=== PATIENT | female | born 1930 | race Caucasian/White ===

== ENCOUNTER 2017-08-25 10:22 | Emergency (ER) | payer MEDICARE, OTHER ==
[~2017-08-25] VITALS: Ht 167.6 cm; Wt 74.8 kg
[2017-08-25] MEDS ORDERED: FAMOTIDINE 20 MG/2 ML VIAL IVP ONE (10:45)
[2017-08-25] MEDS ORDERED: IV NORMAL SALINE 1,000ML 1,000 ML IV SCH (10:45)
[2017-08-25] MEDS ORDERED: KETOROLAC 30 MG/ML VIAL. IV ONE (10:45)
[2017-08-25] MEDS ORDERED: ONDANSETRON PF 4 MG/2 ML VIAL. IV ONE (10:45)
[2017-08-25 11:02] LABS: BASO % 1 % (0-3); EOS % 0 % (0-3); HEMATOCRIT 44.4 % (36.0-47.0); HEMOGLOBIN 14.9 g/dL (12.0-15.5); LYMPH # 1.2 x10^3/uL (1.0-4.8); LYMPH % 18 % (24-48); MEAN CORPUSCULAR HEMOGLOBIN 32 pg (25-35); MEAN CORPUSCULAR HGB CONC 34 g/dL (31-37); MEAN CORPUSCULAR VOLUME 94 fL (79-100); MONO # 0.9 x10^3/uL (0.0-1.1); MONO % 13 % (0-9); NEUT # 4.4 x10^3uL (1.8-7.7); NEUT % 67 % (31-73); PLATELET COUNT 158 x10^3/uL (140-400); RED BLOOD COUNT 4.72 x10^6/uL (3.50-5.40); RED CELL DISTRIBUTION WIDTH 13.2 % (11.5-14.5); WHITE BLOOD COUNT 6.5 x10^3/uL (4.0-11.0)
[2017-08-25] MEDS ORDERED: PROMETH/CODEINE 6.25/10MG 5 ML SYRUP. PO ONE (11:15)
[2017-08-25 11:25] LABS: ALBUMIN 3.5 g/dL (3.4-5.0); ALBUMIN/GLOBULIN RATIO 1.3 (1.0-1.7); CALCIUM 8.8 mg/dL (8.5-10.1); GFR 52.7; POTASSIUM 4.1 mmol/L (3.5-5.1); TOTAL BILIRUBIN 0.6 mg/dL (0.2-1.0); TOTAL PROTEIN 6.2 g/dL (6.4-8.2)
[2017-08-25 11:29] LABS: BACTERIA,URINE 0 /HPF (0-FEW); BILIRUBIN,URINE NEG (NEG); CLARITY,URINE CLEAR; COLOR,URINE YELLOW; GLUCOSE,URINE NEG (NEG); NITRITE,URINE NEG (NEG); SQUAMOUS EPITHELIAL CELL,UR FEW /LPF; UROBILINOGEN,URINE 0.2 mg/dL (0.2 mg/dL); WBC,URINE OCC /HPF (0-4)
[2017-08-25 11:30] LABS: HYALINE CASTS, URINE OCC /HPF
--- NOTE | 2017-08-25 11:40 | RAD ---
EXAM: Head CT without contrast. HISTORY: Headache. TECHNIQUE: Computed tomographic images of the head were obtained without contrast. COMPARISON: None. FINDINGS: There is no acute or subacute extra-axial or intraparenchymal hemorrhage. There is no mass effect or midline shift. There is no hydrocephalus. There are areas of decreased attenuation within the cerebral white matter, nonspecific and likely related to chronic small vessel disease. There is cerebral and cerebellar atrophy. There is calcification of the basal ganglia. There are foci of encephalomalacia within the cerebellar hemispheres likely due to chronic infarction. There is calcified plaque within the distal vertebral and internal carotid arteries. There is a left max sinus mucous retention cyst. The orbits are unremarkable. No calvarial lesion is seen. IMPRESSION: 1. No acute intracranial finding. Note is made that MRI is more sensitive for acute infarction. 2. Scattered areas of hypodensity within the cerebral white, likely due to chronic small vessel disease. 3. Cerebral and loss. 4. Chronic infarcts within the cerebellar hemispheres. PQRS Compliance Statement: One or more of the following individualized dose reduction techniques were utilized for this examination: 1. Automated exposure control 2. Adjustment of the mA and/or kV according to patient size 3. Use of iterative reconstruction technique
--- NOTE | 2017-08-25 12:07 | PHYS DOC ---
General Chief Complaint: HEADACHE Stated Complaint: HEADACHE, N/V Time Seen by MD: 10:34 Source: patient, family Exam Limitations: no limitations Problems: History of Present Illness Initial Comments Patient is an 86-year-old female brought to the ED by family with nausea vomiting diarrhea and headache. Patient states she's been dealing with intermittent migraine headaches for the past 6-7 months. She has seen her doctor and has been diagnosed with early stages of Alzheimer's. Patient states that this morning about 6 AM she began vomiting and having loose stools she states she's had numerous episodes of vomiting and diarrhea and feels like she is empty. She has a severe global headache worse when she is upright, she denies any focal abdominal pain complaints she's had some body aches but no measured fevers no neck stiffness no rash. No travel or bad food exposure she states she has come to the emergency tonight to get rid of her nausea. On arrival her vital signs are stable Timing/Duration: 24 hours Severity: severe Modifying Factors: worse with eating, worse with movement, improves with rest Associated Symptoms: headaches, nausea/vomiting Allergies: Coded Allergies: No Known Drug Allergies (Unverified , 08/25/17) Past Medical History Medical History: other (hyperlipidemia, GERD, migraine headaches, dementia, osteoporosis, hypertension) Surgical History: noncontributory Social History Smoker: non-smoker Alcohol: none Drugs: none Review of Systems Constitutional: denies chills, denies diaphoresis, denies fever, denies malaise Respiratory: denies cough, denies shortness of breath Cardiovascular: denies chest pain, denies palpitations Gastrointestinal: see HPI Genitourinary: denies dysuria, denies frequency, denies hematuria Musculoskeletal: denies back pain, denies joint swelling, denies neck pain Psychiatric/Neurological: see HPI, headache, denies numbness, denies paresthesia, denies seizure, denies weakness Physical Exam General Appearance: moderate distress (nausea) Eyes: bilateral eye normal inspection, bilateral eye PERRL, bilateral eye EOMI Ear, Nose, Throat: hearing grossly normal, normal ENT inspection, normal pharynx (dry membranes) Neck: non-tender, full range of motion, supple Respiratory: normal breath sounds, no respiratory distress Cardiovascular: normal peripheral pulses, regular rate, rhythm Gastrointestinal: non tender, soft, no organomegaly, other (negative Cano negative McBurney no palpable mass) Rectal: deferred Back: no CVA tenderness, no vertebral tenderness Extremities: normal range of motion, non-tender, normal inspection Neurologic/Psychiatric: mink rancher II-XII nml as tested, no motor/sensory deficits, alert, normal mood/affect, oriented x 3 Skin: pallor (poor turgor) Orders, Labs, Meds PATIENT: MARISSA LO ACCOUNT: [id number] : 1930 LOCATION: ER AGE: 86 SEX: F EXAM STATUS: REG ER ORD. PHYSICIAN: DONALDO PATINO DO REASON: BETTS worsening x months, n/v PROCEDURE: CT HEAD WO CONTRAST EXAM: Head CT without contrast. HISTORY: Headache. TECHNIQUE: Computed tomographic images of the head were obtained without contrast. COMPARISON: None. FINDINGS: There is no acute or subacute extra-axial or intraparenchymal hemorrhage. There is no mass effect or midline shift. There is no hydrocephalus. There are areas of decreased attenuation within the cerebral white matter, nonspecific and likely related to chronic small vessel disease. There is cerebral and cerebellar atrophy. There is calcification of the basal ganglia. There are foci of encephalomalacia within the cerebellar hemispheres likely due to chronic infarction. There is calcified plaque within the distal vertebral and internal carotid arteries. There is a left max sinus mucous retention cyst. The orbits are unremarkable. No calvarial lesion is seen. IMPRESSION: 1. No acute intracranial finding. Note is made that MRI is more sensitive for acute infarction. 2. Scattered areas of hypodensity within the cerebral white, likely due to chronic small vessel disease. 3. Cerebral and loss. 4. Chronic infarcts within the cerebellar hemispheres. PQRS Compliance Statement: One or more of the following individualized dose reduction techniques were utilized for this examination: 1. Automated exposure control 2. Adjustment of the mA and/or kV according to patient size 3. Use of iterative reconstruction technique DICTATED AND SIGNED BY: BETH CLARKE MD DATE: 08/25/17 1135 CC: ELINA BREEN; DONALDO PATINO DO ~ PATIENT: MARISSA LO ACCOUNT: [id number] : 1930 LOCATION: ER AGE: 86 SEX: F EXAM STATUS: REG ER ORD. PHYSICIAN: DONALDO PATINO DO REASON: n/v/d PROCEDURE: ACUTE ABDOMEN SERIES EXAM: Abdomen acute complete. HISTORY: Nausea, vomiting and pain. COMPARISON: None. FINDINGS: A frontal view of the chest and frontal upright and supine views of the abdomen are obtained. There is no infiltrate, effusion or pneumothorax. The heart is normal in size. There are few calcified granulomas. There are metallic clips overlying the gastroesophageal junction. There is a generator overlying the right iliac bone with leads overlying the right sacrum. There are postoperative changes involving S1. There is a nonobstructive bowel gas pattern. There is no free air. IMPRESSION: 1. No acute pulmonary finding. 2. Nonobstructive bowel gas pattern. DICTATED AND SIGNED BY: BETH CLARKE MD DATE: 08/25/17 1137 CC: ELINA BREEN; DONALDO PATINO DO ~ Lab evaluation unremarkable. Patient received 1 L normal saline IV bolus, Zofran and Pepcid and Toradol IV with control of her symptoms. She is able to drink liquids and keep them down, she is now requesting discharge home. I discussed signs and symptoms to monitor as well as indications for urgent return to the department. I discussed prescription medications and oral hydration and the patient and family's questions were answered to their satisfaction. They expressed agreement and understanding of the treatment plan. Departure Time of Disposition: 13:19 Disposition: 01 HOME, SELF-CARE Diagnosis: Enteritis likely viral, Dehydration, Headache Condition: IMPROVED Patient Instructions: Dehydration, Elderly, Pkle-am-Eswi, Viral Gastroenteritis , [id number] Additional Instructions: Aggressive clear liquids today, advance to bland diet tomorrow as tolerated. [id number] probiotics or cultured yogurt (gogurt, danimals) to replace normal gut brandi. [id number] Tylenol and ibuprofen as needed. Prescription: Zofran ODT, dicyclomine Follow-up with Dr. Breen in 3-5 days for recheck. Return to the ED with new or changing symptoms. DONALDO PATINO DO Aug 25, 2017 12:07
--- NOTE | 2017-08-25 12:37 | RAD ---
EXAM: Abdomen acute complete. HISTORY: Nausea, vomiting and pain. COMPARISON: None. FINDINGS: A frontal view of the chest and frontal upright and supine views of the abdomen are obtained. There is no infiltrate, effusion or pneumothorax. The heart is normal in size. There are few calcified granulomas. There are metallic clips overlying the gastroesophageal junction. There is a generator overlying the right iliac bone with leads overlying the right sacrum. There are postoperative changes involving S1. There is a nonobstructive bowel gas pattern. There is no free air. IMPRESSION: 1. No acute pulmonary finding. 2. Nonobstructive bowel gas pattern.
[2017-08-25] MEDS ORDERED: DICY20TA3 PO (13:23)
[2017-08-25] MEDS ORDERED: ONDA4TAB10 PO (13:23)
[2017-08-25 13:28] VITALS: BP 138/64
[2017-08-25] MEDS ORDERED: ONDANSETRON ODT 4 MG TAB.RAPDIS PO ONE (13:30)
== END 2017-08-25 13:36 | disposition home or self-care (01) ==
LOC: ER 10:32
DX: K52.9 Noninfective gastroenteritis and colitis, unspecified (principal); E86.0 Dehydration; R51 Headache; E78.5 Hyperlipidemia, unspecified; K21.9 Gastro-esophageal reflux disease without esophagitis; G43.909 Migraine, unspecified, not intractable, without status migrainosus; I10 Essential (primary) hypertension; G30.9 Alzheimer's disease, unspecified; F02.80 Dementia in other diseases classified elsewhere, unspecified severity, without behavioral disturbance, psychotic disturbance, mood disturbance, and anxiety
CPT/HCPCS: 36415; 70450; 74022; 80053; 81001; 83690; 85025; 96361; 96374; 96375; 99285; J1885; J2405; Q0162; S0028; J7030

== ENCOUNTER 2017-10-02 08:59 | Emergency (ER) | payer MEDICARE, OTHER ==
[~2017-10-02 08:59] MED LIST: DICY20TA3 PO; ONDA4TAB10 PO
[2017-10-02 09:52] LABS: BASO % 1 % (0-3); EOS % 1 % (0-3); HEMATOCRIT 43.2 % (36.0-47.0); HEMOGLOBIN 14.2 g/dL (12.0-15.5); LYMPH # 1.1 x10^3/uL (1.0-4.8); LYMPH % 20 % (24-48); MEAN CORPUSCULAR HEMOGLOBIN 31 pg (25-35); MEAN CORPUSCULAR HGB CONC 33 g/dL (31-37); MEAN CORPUSCULAR VOLUME 95 fL (79-100); MONO # 0.8 x10^3/uL (0.0-1.1); MONO % 14 % (0-9); NEUT # 3.6 x10^3uL (1.8-7.7); NEUT % 65 % (31-73); PLATELET COUNT 164 x10^3/uL (140-400); RED BLOOD COUNT 4.55 x10^6/uL (3.50-5.40); RED CELL DISTRIBUTION WIDTH 12.9 % (11.5-14.5); WHITE BLOOD COUNT 5.6 x10^3/uL (4.0-11.0)
[2017-10-02] MEDS ORDERED: IV NORMAL SALINE 1,000ML 1,000 ML IV SCH (10:00)
[2017-10-02] MEDS ORDERED: ONDANSETRON PF 4 MG/2 ML VIAL. IV ONE (10:15)
--- NOTE | 2017-10-02 10:21 | PHYS DOC ---
Past History Past Medical History: GERD Past Surgical History: Appendectomy Alcohol Use: None Drug Use: None Adult General Chief Complaint Chief Complaint: DIARRHEA HPI HPI 86-year-old female patient complaining of frequent episodes of watery diarrhea since 1999 last night and states she had 1 episode of diarrhea every an hour the last episode after and 7 AM today. Patient complaining of nausea and feeling hot and generalized without vomiting, chest pain, shortness of breath, sick contacts, urinary symptom. Patient was admitted at Hospital one month ago for syncope evaluation and denies taking antibiotic recently. Patient also complaining of right leg pain and erythema for one week and some by her primary care physician 3 days ago without any special treatment. Review of Systems Review of Systems Constitutional: Reports subjective fever and chills [] Eyes: Denies change in visual acuity, redness, or eye pain [] HENT: Denies nasal congestion or sore throat [] Respiratory: Denies cough or shortness of breath [] Cardiovascular: No additional information not addressed in HPI [] GI: Denies abdominal pain, vomiting, bloody stools, reports nausea and diarrhea [] : Denies dysuria or hematuria [] Musculoskeletal: Denies back pain or joint pain [] Integument: Denies rash or skin lesions [] Neurologic: Denies headache, focal weakness or sensory changes [] Endocrine: Denies polyuria or polydipsia [] All other systems were reviewed and found to be within normal limits, except as documented in this note. Current Medications Current Medications Current Medications Medications (Trade) Dose Ordered Sig/Gilberto Start Time Stop Time Status Last Admin Dose Admin Ondansetron HCl (Zofran) 4 mg 1X ONCE 10/02/17 10:15 10/02/17 10:16 10/02/17 10:03 4 MG Sodium Chloride 1,000 ml @ 100 mls/hr Q10H 10/02/17 10:00 10/02/17 19:59 10/02/17 10:03 100 MLS/HR Allergies Allergies Allergies Coded Allergies Type Severity Reaction Last Updated Verified No Known Drug Allergies 08/25/17 No Physical Exam Physical Exam Constitutional: Mild distress, non-toxic appearance, afebrile. [] HENT: Normocephalic, atraumatic, bilateral external ears normal, oropharynx dry , no oral exudates, nose normal. [] Eyes: PERRLA, EOMI, conjunctiva normal, no discharge. [] Neck: Normal range of motion, no tenderness, supple, no stridor. [] Cardiovascular:Heart rate regular rhythm, no murmur [] Lungs & Thorax: Bilateral breath sounds clear to auscultation [] Abdomen: Bowel sounds normal, soft, no tenderness, no masses, no pulsatile masses. [] Skin: Warm, dry, no erythema, no rash. [] Back: No tenderness, no CVA tenderness. [] Extremities: No tenderness, no cyanosis, no clubbing, ROM intact, no edema. [] Neurologic: Alert and oriented X 3, normal motor function, normal sensory function, no focal deficits noted. [] Psychologic: Affect normal, judgement normal, mood normal. [] Current Patient Data Vital Signs Vital Signs Date Time Temp Pulse Resp B/P (MAP) Pulse Ox O2 Delivery O2 Flow Rate FiO2 10/02/17 08:59 98.0 67 22 99 Room Air Lab Results Laboratory Tests Test 10/02/17 09:34 White Blood Count 5.6 x10^3/uL (4.0-11.0) Red Blood Count 4.55 x10^6/uL (3.50-5.40) Hemoglobin 14.2 g/dL (12.0-15.5) Hematocrit 43.2 % (36.0-47.0) Mean Corpuscular Volume 95 fL (79-100) Mean Corpuscular Hemoglobin 31 pg (25-35) Mean Corpuscular Hemoglobin Concent 33 g/dL (31-37) Red Cell Distribution Width 12.9 % (11.5-14.5) Platelet Count 164 x10^3/uL (140-400) Neutrophils (%) (Auto) 65 % (31-73) Lymphocytes (%) (Auto) 20 % (24-48) L Monocytes (%) (Auto) 14 % (0-9) H Eosinophils (%) (Auto) 1 % (0-3) Basophils (%) (Auto) 1 % (0-3) Neutrophils # (Auto) 3.6 x10^3uL (1.8-7.7) Lymphocytes # (Auto) 1.1 x10^3/uL (1.0-4.8) Monocytes # (Auto) 0.8 x10^3/uL (0.0-1.1) Eosinophils # (Auto) 0.0 x10^3/uL (0.0-0.7) Basophils # (Auto) 0.0 x10^3/uL (0.0-0.2) EKG EKG [] Radiology/Procedures Radiology/Procedures [] Course & Med Decision Making Course & Med Decision Making Pertinent Labs and Imaging studies reviewed. (See chart for details) [] Dragon Disclaimer Dragon Disclaimer This electronic medical record was generated, in whole or in part, using a voice recognition dictation system. Departure Departure: Impression: Primary Impression: Viral enteritis Additional Impression: Cellulitis of right leg Disposition: HOME, SELF-CARE (at 1308) Condition: IMPROVED Referrals: ELINA OVIEDO (PCP) Patient Instructions: Cellulitis, Diarrhea, Diet for Diarrhea, Adult Additional Instructions: Apply moist heat pad on your Right Leg Follow-up with your primary care physician in 48 hours for evaluation of cellulitis of leg Scripts Ondansetron (ZOFRAN ODT) 4 Mg Tab.rapdis 4 MG PO TID for NAUSEA, #10 Prov: LIZZETTE ANDREWS MD 10/02/17 Problem Qualifiers LIZZETTE ANDREWS MD Oct 02, 2017 10:21
[2017-10-02 10:24] LABS: ALBUMIN 3.6 g/dL (3.4-5.0); ALBUMIN/GLOBULIN RATIO 1.5 (1.0-1.7); CALCIUM 8.8 mg/dL (8.5-10.1); CREATININE 1.2 mg/dL (0.6-1.0); GFR 42.7; TOTAL BILIRUBIN 0.9 mg/dL (0.2-1.0)
[2017-10-02 11:58] LABS: BACTERIA,URINE FEW /HPF (0-FEW); BILIRUBIN,URINE NEG (NEG); CLARITY,URINE HAZY; COLOR,URINE AMBER; GLUCOSE,URINE NEG (NEG); HYALINE CASTS, URINE FEW /HPF; NITRITE,URINE NEG (NEG); SQUAMOUS EPITHELIAL CELL,UR OCC /LPF; UROBILINOGEN,URINE 0.2 mg/dL (0.2 mg/dL)
--- NOTE | 2017-10-02 12:34 | RAD ---
Right lower extremity venous duplex study 10/02/2017 Clinical History: Right leg redness and pain. Technique: Using a combination of real time ultrasound imaging and color-flow and pulse Doppler imaging techniques along with graded compression and augmentation, duplex evaluation of the deep venous system of the right lower extremity was performed. Multiple images were obtained. Findings: There is no sonographic evidence of deep venous thrombosis involving the visualized deep venous structures of right lower extremity. Impression: Negative study.
[2017-10-02] MEDS ORDERED: ONDA4TAB10 PO (13:11)
[2017-10-02 13:25] VITALS: BP 127/66
== END 2017-10-02 13:27 | disposition home or self-care (01) ==
LOC: ER 08:59
DX: A08.4 Viral intestinal infection, unspecified (principal); L03.115 Cellulitis of right lower limb; K21.9 Gastro-esophageal reflux disease without esophagitis
CPT/HCPCS: 36415; 80053; 81001; 83605; 83690; 83880; 84484; 85025; 85610; 87040; 87086; 93971; 96361; 96374; 99285; J2405; J7030

== ENCOUNTER 2018-03-24 23:31 | Inpatient (IN) | payer MEDICARE, OTHER ==
[~2018-03-24] VITALS: Ht 170.2 cm; Wt 56.5 kg
--- NOTE | 2018-03-24 23:37 | ED.ADGEN ---
Past History Past Medical History: Constipation, GERD, Other Past Surgical History: Appendectomy Alcohol Use: None Drug Use: None Adult General Chief Complaint Chief Complaint "... She not hardly eaten anything for a month... ".. She dizzy...". " Almost passes out.. if she stand up..." Son , " I just don't feel like eating... ".." I am nauseated all .. the time.. " .." I hurt in my abd...." HPI HPI Patient is a 87 year old male who presents with above hx and complaints of dizzy , near syncope, nausea and poor intake. Pt. normally in an Assisted living in [place], [place]. Pt. currently staying with family here in [place] because having surgery .Pt. very poor intake the past 30 days as per family. Pt. complaints of generalized abd. discomfort. No history of trauma. No history of specific ill contacts. No recent travel. Patient states she has had minimal of any passage of stool. Patient denies any recent abdomen surgeries. Has has history of appendectomy and placement of bladder stimulator for urinary incontinence. Pt. has had hx. of problems of constipation and pain on defecation. Review of Systems Review of Systems Constitutional: Denies fever or chills [] Eyes: Denies change in visual acuity, redness, or eye pain [] HENT: Denies nasal congestion or sore throat [] Respiratory: Denies cough or shortness of breath [] Cardiovascular: No additional information not addressed in HPI [] GI: Complaints of generalized abdominal pain, nausea,. Denies vomiting, bloody stools or diarrhea []Hx. of constipation : Denies dysuria or hematuria [] Musculoskeletal: Denies back pain or joint pain [] Integument: Denies rash or skin lesions [] Neurologic: Denies headache, focal weakness or sensory changes [- Hx. ]near syncope episodes Endocrine: Denies polyuria or polydipsia [] All other systems were reviewed and found to be within normal limits, except as documented in this note. Family History Family History Non-contributory Current Medications Current Medications Current Medications Medications (Trade) Dose Ordered Sig/Gilberto Start Time Stop Time Status Last Admin Dose Admin Lactated Ringer's 1,000 ml @ 100 mls/hr Q10H 03/25/18 00:00 03/25/18 09:59 03/25/18 00:00 100 MLS/HR See Nursing for home meds. Allergies Allergies NKDA Physical Exam Physical Exam Constitutional: Moderately acute distress, chronically ill in appearance. [] Muscle wasting cachectic in appearance HENT: Normocephalic, atraumatic, bilateral external ears normal, oropharynx dry, , no oral exudates, nose normal. [] Eyes: PERRLA, EOMI, conjunctiva normal, no discharge. [] Neck: Normal range of motion, no tenderness, supple, no stridor. [] Cardiovascular:Heart rate regular rhythm, no murmur [] Lungs & Thorax: Bilateral breath sounds equal at apex on. Auscultation [] Abdomen: Bowel sounds decreased, soft, generalized tenderness, no masses, no pulsatile masses. [] Old surgery scars.. Mild distention. Skin: Warm, dry, no erythema, no rash. [] Poor turgor Back: No tenderness, no CVA tenderness. [] Extremities: No tenderness, no cyanosis, no clubbing, ROM intact, no edema. [] Generalized weakness. Arthritic changes. Muscle wasting. Neurologic: Alert and oriented X 3, patient moves all extremities on request. Decreased plantar sensation. No gross focal deficits noted. [] Psychologic: Affect anxious, judgement normal, mood depressed Current Patient Data Vital Signs Vital Signs Date Time Temp Pulse Resp B/P (MAP) Pulse Ox O2 Delivery O2 Flow Rate FiO2 03/24/18 23:31 97.8 76 20 99 Room Air Lab Results Laboratory Tests Test 03/24/18 23:57 03/25/18 00:05 White Blood Count 7.0 x10^3/uL (4.0-11.0) Red Blood Count 4.22 x10^6/uL (3.50-5.40) Hemoglobin 13.4 g/dL (12.0-15.5) Hematocrit 40.5 % (36.0-47.0) Mean Corpuscular Volume 96 fL (79-100) Mean Corpuscular Hemoglobin 32 pg (25-35) Mean Corpuscular Hemoglobin Concent 33 g/dL (31-37) Red Cell Distribution Width 13.4 % (11.5-14.5) Platelet Count 167 x10^3/uL (140-400) Neutrophils (%) (Auto) 70 % (31-73) Lymphocytes (%) (Auto) 21 % (24-48) L Monocytes (%) (Auto) 8 % (0-9) Eosinophils (%) (Auto) 1 % (0-3) Basophils (%) (Auto) 1 % (0-3) Neutrophils # (Auto) 4.9 x10^3uL (1.8-7.7) Lymphocytes # (Auto) 1.5 x10^3/uL (1.0-4.8) Monocytes # (Auto) 0.5 x10^3/uL (0.0-1.1) Eosinophils # (Auto) 0.1 x10^3/uL (0.0-0.7) Basophils # (Auto) 0.0 x10^3/uL (0.0-0.2) Prothrombin Time 10.9 SEC (9.4-11.4) Prothrombin Time INR 1.1 (0.9-1.1) PTT 21 SEC (23-33) L Sodium Level 144 mmol/L (136-145) Potassium Level 3.6 mmol/L (3.5-5.1) Chloride Level 109 mmol/L (98-107) H Carbon Dioxide Level 25 mmol/L (21-32) Anion Gap 10 (6-14) Blood Urea Nitrogen 14 mg/dL (7-20) Creatinine 1.2 mg/dL (0.6-1.0) H Estimated GFR (Cockcroft-Gault) 42.6 BUN/Creatinine Ratio 12 (6-20) Glucose Level 145 mg/dL (70-99) H Calcium Level 8.9 mg/dL (8.5-10.1) Total Bilirubin 0.8 mg/dL (0.2-1.0) Direct Bilirubin 0.2 mg/dL (0.0-0.2) Aspartate Amino Transferase (AST) 29 U/L (15-37) Alanine Aminotransferase (ALT) 28 U/L (14-59) Alkaline Phosphatase 48 U/L (46-116) Creatine Kinase 79 U/L (26-192) Creatine Kinase MB (Mass) 1.2 ng/mL (0.0-3.6) Creatine Kinase MB Relative Index 1.5 % (0-4) Troponin I Quantitative < 0.017 ng/mL (0-0.055) Total Protein 6.1 g/dL (6.4-8.2) L Albumin 3.4 g/dL (3.4-5.0) Albumin/Globulin Ratio 1.3 (1.0-1.7) Lipase 150 U/L (73-393) Urine Collection Type Unknown Urine Color Yellow Urine Clarity Clear Urine pH 6.0 Urine Specific Floris 1.015 Urine Protein >100 mg/dl (NEG-TRACE) Urine Glucose (UA) Neg mg/dL (NEG) Urine Ketones (Stick) Neg mg/dL (NEG) Urine Blood Trace (NEG) Urine Nitrite Neg (NEG) Urine Bilirubin Neg (NEG) Urine Urobilinogen Dipstick 0.2 mg/dL (0.2 mg/dL) Urine Leukocyte Esterase Neg (NEG) Urine RBC 0 /HPF (0-2) Urine WBC Occ /HPF (0-4) Urine Squamous Epithelial Cells Occ /LPF Urine Bacteria 0 /HPF (0-FEW) Urine Opiates Screen Neg (NEG) Urine Methadone Screen Neg (NEG) Urine Barbiturates Neg (NEG) Urine Phencyclidine Screen Neg (NEG) Urine Amphetamine/Methamphetamine Neg (NEG) Urine Benzodiazepines Screen Neg (NEG) Urine Cocaine Screen Neg (NEG) Urine Cannabinoids Screen Neg (NEG) Urine Ethyl Alcohol Neg (NEG) EKG EKG My interpretation EKG shows a sinus rate at 80 bpm. No acute morphology appreciated[] Radiology/Procedures Radiology/Procedures My interpretation of chest x-ray shows no free air in the diaphragm. There are clips under left diaphragm. Does have findings of a bladder stimulator. Few isolated loops of bowel. My interpretation CT of head shows no shift, mass, edema, bleed, or fracture. Does have generalized atrophy and volume loss. CT of abdomen pending at time of admission. Course & Med Decision Making Course & Med Decision Making Pertinent Labs and Imaging studies reviewed. (See chart for details) Discussed presentation, testing and treatment plan with Dr. Multani. Will admit for further eval. and tx. [] Final Impression Final Impression 1. Nausea 2. Dizzy[] 3. Near Syncope 4. Weakness 5. Elevated Protein Urine 6. Deconditioned 7. Elevated Glucose- DM 8. Elevated Creat. 9. Abd. Pain 10.Thicken rectal and bowel wall ? colitis vs neoplastic 11.Thicken bladder wall ? neoplastic, artifact 12.Constipation Dragon Disclaimer Dragon Disclaimer This electronic medical record was generated, in whole or in part, using a voice recognition dictation system. JIA BROWN MD Mar 24, 2018 23:37
--- NOTE | 2018-03-24 23:54 | EKG ---
[address] [address] Test Date: 2018-03-24 Test Time: 23:44:35 Pat Name: MARISSA LO Department: Room: Gender: F Marketing Secretary: CÉSAR : 1930 Requested By: JIA BROWN Order Number: [id number] Reading MD: Measurements Intervals [place] Rate: 80 P: 90 CT: 134 QRS: 55 QRSD: 86 T: 55 QT: 386 QTc: 449 Interpretive Statements SINUS RHYTHM NORMAL ECG RI6.01 No previous ECG available for comparison
[2018-03-25] MEDS ORDERED: IV RINGERS SOLUTION,LACTATED 1,000 ML IV SCH
[2018-03-25 00:29] LABS: BASO % 1 % (0-3); EOS # 0.1 x10^3/uL (0.0-0.7); EOS % 1 % (0-3); HEMATOCRIT 40.5 % (36.0-47.0); HEMOGLOBIN 13.4 g/dL (12.0-15.5); LYMPH # 1.5 x10^3/uL (1.0-4.8); LYMPH % 21 % (24-48); MEAN CORPUSCULAR HEMOGLOBIN 32 pg (25-35); MEAN CORPUSCULAR HGB CONC 33 g/dL (31-37); MEAN CORPUSCULAR VOLUME 96 fL (79-100); MONO # 0.5 x10^3/uL (0.0-1.1); MONO % 8 % (0-9); NEUT # 4.9 x10^3uL (1.8-7.7); NEUT % 70 % (31-73); PLATELET COUNT 167 x10^3/uL (140-400); RED BLOOD COUNT 4.22 x10^6/uL (3.50-5.40); RED CELL DISTRIBUTION WIDTH 13.4 % (11.5-14.5)
[2018-03-25 00:40] LABS: BILIRUBIN,URINE NEG (NEG); CLARITY,URINE CLEAR; COLOR,URINE YELLOW; GLUCOSE,URINE NEG (NEG); NITRITE,URINE NEG (NEG); RBC,URINE 0 /HPF (0-2); UROBILINOGEN,URINE 0.2 mg/dL (0.2 mg/dL)
[2018-03-25 00:41] LABS: BACTERIA,URINE 0 /HPF (0-FEW); SQUAMOUS EPITHELIAL CELL,UR OCC /LPF; WBC,URINE OCC /HPF (0-4)
--- NOTE | 2018-03-25 00:47 | RAD ---
INDICATION: headache, dizziness COMPARISON: August 2017 TECHNIQUE: Axial CT images obtained through the head without intravenous contrast. One or more of the following individualized dose reduction techniques were utilized for this examination: 1. Automated exposure control; 2. Adjustment of the mA and/or kV according to patient size; 3. Use of iterative reconstruction technique. FINDINGS: No intracranial hemorrhage. No midline shift. Basal cisterns patents. Ventricles and sulci are globally prominent. No acute osseous abnormality. Orbits and paranasal sinuses unremarkable. Scattered foci of low attenuation within the white matter. IMPRESSION: 1. No acute intracranial hemorrhage. 2. Scattered regions of low attenuation within the white matter. Non-specific in nature but frequently secondary to chronic small vessel ischemic disease. 3. Prominence of ventricles and sulci which is frequently secondary to age related volume loss. Electronically signed by: Memo Christianson MD (03/25/2018 12:44 AM) [id number]
[2018-03-25 00:48] LABS: BARBITURATES NEG (NEG); BENZODIAZEPINES NEG (NEG); CANNABINOIDS NEG (NEG); COCAINE NEG (NEG); METHADONE NEG (NEG); OPIATES NEG (NEG); PHENCYCLIDINE NEG (NEG)
[2018-03-25 00:49] LABS: AMPHETAMINE/METHAMPHETAMINE NEG (NEG)
[2018-03-25 01:09] LABS: ALBUMIN 3.4 g/dL (3.4-5.0); ALBUMIN/GLOBULIN RATIO 1.3 (1.0-1.7); CALCIUM 8.9 mg/dL (8.5-10.1); CREATININE 1.2 mg/dL (0.6-1.0); DIRECT BILIRUBIN 0.2 mg/dL (0.0-0.2); GFR 42.6; POTASSIUM 3.6 mmol/L (3.5-5.1); TOTAL BILIRUBIN 0.8 mg/dL (0.2-1.0); TOTAL PROTEIN 6.1 g/dL (6.4-8.2)
[2018-03-25] MEDS ORDERED: IOHEXOL 240 MG/ML 50ML VIAL. ONE (01:37)
[2018-03-25] MEDS ORDERED: IV RINGERS SOLUTION,LACTATED 1,000 ML IV ONE (02:00)
[2018-03-25] MEDS ORDERED: CONTRAST GIVEN MC PRN (02:15)
[2018-03-25] MEDS ORDERED: IOHEXOL 300 MG/ML 75 ML VIAL. IV ONE (02:30)
[2018-03-25] MEDS ORDERED: IOHEXOL 240 MG/ML 50ML VIAL. PO ONE (02:30)
--- NOTE | 2018-03-25 04:07 | RAD ---
INDICATION: nausea, weakness, no appetite, weight loss, fall, confusion
gave Omni 300 60ml iv - reduced dose protocol [id number]
gave [id number] 30 ml oral COMPARISON: None. TECHNIQUE: Axial CT images obtained through the abdomen and pelvis with contrast. One or more of the following individualized dose reduction techniques were utilized for this examination: 1. Automated exposure control; 2. Adjustment of the mA and/or kV according to patient size; 3. Use of iterative reconstruction technique. FINDINGS: Severe calcific atherosclerosis. There is some subcutaneous vessels at the anterior pelvic wall. Could be collateral veins. Prominence of the intrahepatic bile ducts. The gallbladder is largely contracted. No definite peripancreatic fluid collection. Spleen unremarkable. Urinary bladder is partially distended. There are prominent extrarenal pelvises bilaterally. Some apparent urothelial thickening on the right with enhancement. There is some edema seen adjacent to the rectal region with a large amount of stool in the rectal region. Within the uterus there is a low density region with a higher density component within. This low-density region measures up to about 24 mm in diameter. There is some apparent bladder wall thickening. Appendix is not well seen. Subcutaneous pack with lead at sacral region. Degenerative changes of spine. IMPRESSION: 1. Edema is seen adjacent to the rectal region with a large amount of stool in the area. Would correlate for possible causes such as colitis. May be helpful to obtain a follow-up to ensure this resolves to exclude neoplastic causes. 2. Suggestion of thickening of the endometrial stripe as well as lesion within the uterus. Could be helpful to obtain a follow-up pelvic ultrasound on a nonemergent basis to further evaluate for a uterine lesion such as fibroid or an endometrial mass given that the endometrial stripe appears thickened for the patient's age. 3. Severe calcific atherosclerosis. 4. Apparent right urothelial thickening of the ureter and extrarenal pelvis as well as regions of thickening of the bladder wall. Would correlate with symptoms in the region to exclude infectious causes. Given the prominence of the bladder wall and the urothelial enhancement a follow-up may be helpful to ensure this resolves to exclude neoplastic causes as well. 5. There is some prominence of the bile ducts. This can be physiologic in patients of this age but would correlate with symptoms and lab markers in the region to ensure that there is not a pathologic cause. Electronically signed by: Memo Christianson MD (03/25/2018 4:04 AM) -[facility]
[2018-03-25] MEDS ORDERED: PEG 3350/NA SULF,BICARB,CL/KCL 4,000 ML SOLUTION. PO ONE (05:00)
--- NOTE | 2018-03-25 06:39 | NUR ---
ADMISSION: The patient, MARISSA LO, 87 y/o, F admitted by NEMO BRIONES MD, was given written information regarding hospital policies, unit procedures and contact persons. Valuables were checked and logged. Left in room with patient.
[2018-03-25 06:41] VITALS: BP 184/80
--- NOTE | 2018-03-25 08:38 | RAD ---
Indication: Dizziness, nausea, loss of appetite TECHNIQUE: AP chest and 2 views of the abdomen and pelvis COMPARISON: 08/25/2017 FINDINGS: Heart is normal in size. Lungs are hyperinflated. No pneumothorax or pleural effusion. Visualized bony thorax within normal limits. No evidence of free intraperitoneal air. Nonspecific air-filled loops of small bowel in the left pelvis. Electronic stimulator device is seen projecting over the right hemipelvis. Visualized bones are within normal limits. IMPRESSION: Nonspecific bowel gas pattern. No acute findings. Electronically signed by: Jewel Gonzalez DO (03/25/2018 8:35 AM) [facility]
[2018-03-25] MEDS ORDERED: LISINOPRIL 20 MG TABLET PO SCH (09:00)
[2018-03-25] MEDS ORDERED: LISI40TA PO (09:19)
[2018-03-25] MEDS ORDERED: MAGNESIUM HYDROXIDE 2,400 MG/30 ML ORAL.SUSP. PO ONE (10:00)
[2018-03-25] MEDS ORDERED: BISACODYL TAB 5 MG TABLET.DR. PO ONE (10:00)
[2018-03-25 10:36] VITALS: BP 120/67
[2018-03-25] MEDS ORDERED: SIMV20TA3 PO (11:51)
[2018-03-25] MEDS ORDERED: ESOM40CA PO (11:51)
[2018-03-25] MEDS ORDERED: DONE5TAB7 PO (11:51)
[2018-03-25] MEDS ORDERED: RANI150T2 PO (11:51)
[2018-03-25] MEDS ORDERED: ASPI-630 PO (11:59)
[2018-03-25] MEDS ORDERED: RISE35TA3 PO (11:59)
[2018-03-25] MEDS ORDERED: MULT-245 PO (11:59)
[2018-03-25 14:53] VITALS: BP 120/63
[2018-03-25 15:20] VITALS: BP 128/61
[2018-03-25 15:23] VITALS: BP_SYST 120; BP_SYST 81; BP_DIAS 49; BP_DIAS 61
--- NOTE | 2018-03-25 16:15 | NUR ---
EMS here to transfer pt to [facility]. Report given. Pt's family at pt's side.
--- NOTE | 2018-03-25 18:52 | HP ---
ADMIT DATE: 03/25/2018 HISTORY OF PRESENT ILLNESS: The patient is an 87-year-old female patient who was brought to the Emergency Room for complaint of being nauseated all the time. She has not apparently eaten anything for a month, feeling dizzy, and almost passed out if she stands up. She also complained of pain in her abdomen. On questioning her daughter, she apparently has a bout of diarrhea that lasted for almost 2 months during which she underwent upper and lower GI endoscopy. The colonoscopy was unrevealing and there was only a small polyp that was removed. She has been refusing to eat for almost a month now. However, she apparently continued to take her medications that include lisinopril and she saw her primary care physician yesterday who recommended to stop the lisinopril and by the time she came to our Emergency Room, she apparently was normotensive lying but apparently blood pressure drops when she stands up. She was extensively investigated in the Emergency Room and her lab work was essentially unremarkable. She underwent imaging studies including CT scan of the head that she fell and apparently showed no acute intracranial hemorrhage and also CT scan of the abdomen and pelvis which showed that she had edema seen adjacent to the rectal region with a large amount of stool in the area, we would correlate with possible cause such as colitis may be helpful to obtain a followup to ensure that this result to exclude neoplastic causes. There is also a suggestion of thickening of the endometrial stripe as well as lesions within the uterus, small severe calcific atherosclerosis and apparent right urothelial thickening of the ureter and extrarenal pelvis as well as regions of the thickening of the bladder wall would correlate with symptoms in the region to exclude infectious causes, given the prominence bladder and the urothelial enhancement, a followup may be helpful to ensure that the result to exclude neoplastic causes as well. There is some also prominence of the bile duct. The patient was admitted for rehydration and further evaluation. PAST MEDICAL HISTORY: Significant for hypertension, hyperlipidemia, gastroesophageal reflux disease, generalized osteoarthritis, diarrhea and dementia. PAST SURGICAL HISTORY: Significant for tonsillectomy, appendectomy, colonoscopy and polypectomy. ALLERGIES: She has no known drug allergies. MEDICATIONS: She was on following medications: She is on Aricept 5 mg tablet daily, simvastatin 20 mg at bedtime, lisinopril 40 mg once a day, aspirin 81 mg once a day, ranitidine 150 mg twice a day, Nexium 40 mg once a day, multivitamin 1 tablet once a day, Actonel 35 mg once a week. FAMILY HISTORY: She has 5 brothers and 5 sisters. Her father at age of 48 and mother at age of 68. SOCIAL HISTORY: She is , has a son and a daughter, had another son who at age of 17 in a car accident. She has never smoked, does not drink alcohol. 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 REVIEW OF SYSTEMS: The patient denied any blurring of vision, cataract, glaucoma or macular degeneration. Denied any earache, tinnitus or sensorineural deafness. Denied any nosebleeds, stuffy nose or postnasal drip. Denied any sore throat, sore tongue, toothache, hoarseness of voice or difficulty swallowing. She denied any nausea or vomiting, but did complain of anorexia and weight loss. She lost about 40 pounds. She did have diarrhea for almost 2 months that has subsided but denied any constipation although CT scan showed that she has constipation. Denied any hematemesis, melena or hematochezia. Denied any dysuria, frequency or hematuria. Denied any chest pain, shortness of breath, orthopnea or paroxysmal nocturnal dyspnea. Denied any cough, phlegm or hemoptysis. Denied any chills, rigors, or fever. She did complain of dizziness and continued to complain of dizziness. PHYSICAL EXAMINATION: VITAL SIGNS: On examining her today, on arrival to the Emergency Room, her heart rate was 76, blood pressure 141/67 lying, temperature was 97.8, respiratory rate 20, and oxygen saturation was 99% on room air. HEENT: Showed normocephalic, atraumatic. NECK: Supple. HEART: Showed normal first and second heart sounds. No gallop, rub or murmur. CHEST: Clear to auscultation. No crepitation or rhonchi. ABDOMEN: Distended, soft, nontender. No guarding or rigidity. No organomegaly. All hernial orifices intact. Bowel sounds normal. NEUROLOGIC: She was awake, alert, responding appropriately. All cranial nerves intact. She moves all extremities without difficulty. LABORATORY DATA: On arrival to the Emergency Room, she has lab work done, showed a white cell count of 7000, hemoglobin 13.4, hematocrit 40, MCV 96, and platelet count of 167,000 with normal manual differential. Her chemistry showed a serum sodium 144, potassium 3.6, chloride 109, bicarbonate 25, anion gap of 10, BUN 14, creatinine 1.2, estimated GFR was 42 mL per minute. Her glucose 145, calcium was 8.9. Total bilirubin, AST, ALT, alkaline phosphatase were normal. Her total protein was 6.1, albumin was 3.4. Her lipase was 150. Her prothrombin time was 10.9, INR 1.1, aPTT was 21. Urinalysis showed the urine was yellow, clear with a pH of 6, specific gravity of 1.015. There is a moderate amount of protein. However, the urine was negative for glucose, ketones, trace amount of blood, negative for nitrite and leukocyte esterase. There are no rbc's, no wbc's, and no bacteria. Her toxicology screen was negative. She has had a CT scan of the head, which showed that she has no acute intracranial hemorrhage. There are scattered regions of low attenuation within the white matter, nonspecific in nature, but frequently secondary to chronic small vessel ischemic disease and she has also prominence of the ventricles and sulci, which is frequently secondary to age-related volume loss, a CT scan of the abdomen and pelvis showed that there is severe calcific atherosclerosis. There is some subcutaneous visits at the anterior pelvic wall, could be collateral veins prominence of the intrahepatic bile duct. The gallbladder is largely contracted. No definite peripancreatic fluid collection. Spleen unremarkable. Urinary bladder is partially distended. There are prominent extrarenal pelvis bilaterally, some apparent urothelial thickening on the right with enhancement. There is some edema seen adjacent to the rectal region with a large amount of stool in the rectal region. Within the uterus, there is also low density region with a higher density component. Within it, this low density region measures up to about 24 mm in diameter, there is some apparent bladder wall thickening. Appendix not well seen, subcutaneus fat which leads to sacral region, degenerative changes of the spine. IMPRESSION: The impression that the patient edema is seen adjacent to the rectal region with a large amount of stool in the area would correlate for possible cause such as colitis may be helpful to obtain a followup to ensure that this resolves to exclude neoplastic lesion with neoplastic causes. There is also a suggestion of thickening of the endometrial stripe as well as lesions within the uterus could be helpful to obtain a followup pelvic ultrasound to further evaluate for uterine lesions such as fibroids or endometrial mass. Given that the endometrial stripe appears to be taken for the patient's age, there was a specific severe calcific atherosclerosis apparent right urothelial thickening of the ureter and extrarenal pelvis as well as region of the thickening of the bladder wall and there is also some prominence of the bile duct. This can be physiologic in patients of this age, but would correlate with symptoms and lab markers in the region to ensure there are no pathological causes. The patient was admitted with dizziness, nausea, hypertension, near syncope, generalized weakness and thickened rectal and bowel wall, colitis with neoplastic thickened bladder wall, neoplastic artifact, she has constipation and dramatic weight loss of about 40 pounds, probably pointing to some form of malignancy. PLAN: My plan is to hold her blood pressure medication and check her orthostatics, started on IV fluid and she probably needs further evaluation by a manager truck and a urologist and I believe that she would benefit from transfer to a [facility] if her family is agreeable to investigate her further and to elucidate the reason for her weight loss. NEMO BRIONES MD DR: ERICA/rick JOB#: [id number] / [id number]
[2018-03-25] MEDS ORDERED: SIMVASTATIN 20 MG TABLET PO SCH (21:00)
[2018-03-26 05:15] LABS: HEMOGLOBIN A1C 5.8 % (4.8-5.6)
[2018-03-26] MEDS ORDERED: PANTOPRAZOLE 40 MG TABLET. PO SCH (07:30)
[2018-03-26] MEDS ORDERED: MULTIVITAMIN with MINERAL TABLET. PO SCH (09:00)
[2018-03-26] MEDS ORDERED: DONEPEZIL HCL 5 MG TABLET. PO SCH (09:00)
== END 2018-03-25 16:17 | disposition short-term general hospital (02) | DRG 392 ==
LOC: ER 23:31 → 1 SOUTH 03-25 00:30
PROVIDERS: ADMIT Internal Medicine; ATTEND Internal Medicine
DX: K52.9 Noninfective gastroenteritis and colitis, unspecified (principal); E78.5 Hyperlipidemia, unspecified; F03.90 Unspecified dementia, unspecified severity, without behavioral disturbance, psychotic disturbance, mood disturbance, and anxiety; I10 Essential (primary) hypertension; K21.9 Gastro-esophageal reflux disease without esophagitis; K59.00 Constipation, unspecified; M15.9 Polyosteoarthritis, unspecified; Z90.49 Acquired absence of other specified parts of digestive tract
CPT/HCPCS: 36415; 70450; 74022; 74177; 80048; 80053; 80076; 80307; 81001; 82553; 83036; 83690; 84484; 85025; 85610; 85730; 87040; 93005; 96360; 96361; G0238; J7120; P9612; Q9966; Q9967; 99285-25; G0479

== ENCOUNTER 2020-05-21 19:06 | Emergency (ER) | payer MEDICARE, OTHER ==
[~2020-05-21] VITALS: Ht 170.2 cm; Wt 82.4 kg
[~2020-05-21 19:06] MED LIST changes: +ASPI-630 PO; +DONE5TAB7 PO; +ESOM40CA PO; +LISI40TA PO; +MULT-245 PO; +RANI150T2 PO; +RISE35TA3 PO; +SIMV20TA18 PO
--- NOTE | 2020-05-21 19:51 | PHYS DOC ---
Past History Past Medical History: Constipation, Dementia, GERD, High Cholesterol, Other Additional Past Medical Histor: BLOOD CLOTS Past Surgical History: Appendectomy, Other Additional Past Surgical Histo: ULCERS Alcohol Use: None Drug Use: None General Adult EDM: Chief Complaint: MECHANICAL FALL HPI: HPI: 89-year-old female past medical history significant for dementia, hypertension, hyperlipidemia, GERD with history of blood clots, on aspirin, presents to the ED brought in by her daughter, (pts'; DPOA), from [facility], after patient reported she fell and hit her head and left hip. Difficult to obtain history given patient's dementia. This was an unwitnessed event. ROS: Unable to perform due to dementia -in the ED patient denies any fever, chills, cough, sore throat, dyspnea, chest pain, headache, dizziness, neck stiffness, joint deformity, rash, hemoptysis, nausea, vomiting, abdominal or back pain. Allergies: Allergies: Allergies Coded Allergies Type Severity Reaction Last Updated Verified No Known Drug Allergies 03/25/18 No Physical Exam: PE: Constitutional: Well developed, well nourished, no acute distress, non-toxic appearance. [] HENT: Normocephalic, atraumatic, bilateral external ears normal, oropharynx moist, no oral exudates, nose normal. [] Eyes: PERRLA, EOMI, conjunctiva normal, no discharge. [] Neck: Normal range of motion, no tenderness, supple, no stridor. [] Cardiovascular:Heart rate regular rhythm, no murmur [] Lungs & Thorax: Bilateral breath sounds clear to auscultation [] Abdomen: Bowel sounds normal, soft, no tenderness, no masses, no pulsatile masses. [] Skin: Warm, dry, no erythema, no rash. [] Back: No tenderness, no CVA tenderness. [] Extremities: No tenderness, no cyanosis, no clubbing, ROM intact, no edema. [] Neurologic: Alert and oriented X 3, normal motor function, normal sensory function, no focal deficits noted. [] Psychologic: Affect normal, judgement normal, mood normal. [] Current Patient Data: Vital Signs: Vital Signs Date Time Temp Pulse Resp B/P (MAP) Pulse Ox O2 Delivery O2 Flow Rate FiO2 05/21/20 19:30 98.4 65 16 160/70 (100) 96 Room Air EKG: EKG: [] Radiology/Procedures: Radiology/Procedures: IMAGING REPORT Signed PATIENT: MARISSA LO ACCOUNT: [id number] : 1930 LOCATION: ER AGE: 89 SEX: F EXAM STATUS: REG ER ORD. PHYSICIAN: FRANCISCO JOSE DO REASON: fall PROCEDURE: CT HEAD AND CERVICAL SPINE WO CT HEAD AND CERVICAL SPINE WO History: Reason: fall / Spl. Instructions: / History: . Pain. Comparison: None. Technique: Noncontrast CT imaging was performed of the head and cervical spine. Coronal and sagittal reconstructions were performed. Exposure: One or more of the following individualized dose reduction techniques were utilized for this examination: 1. Automated exposure control 2. Adjustment of the mA and/or kV according to patient size 3. Use of iterative reconstruction technique. Findings: Head CT: No intracranial hemorrhage. No mass effect. No hydrocephalus. Mild brain parenchymal volume loss. Mild foci of decreased attenuation within the hemispheric white matter, most often due to chronic microvascular ischemia. Chronic right cerebellar lacunar infarct. Right intraparotid hyperdense lesion measures 1.7 x 1.5 cm. Imaged orbits are unremarkable. Imaged paranasal sinuses and mastoid air cells are clear. No acute calvarial fracture. TMJ arthropathy. Cervical spine CT: Normal vertebral body height and alignment. No fracture. Multilevel degenerative disc changes most prominent C5-C6. Multilevel facet arthropathy most prominent left C4-C5 and C5-C6. Multilevel neuroforaminal narrowing. No high-grade canal stenosis. Impression: Head CT: 1. No acute intracranial abnormality. 2. Small chronic right cerebellar lacunar infarct. Cervical spine CT: 1. No acute fracture or subluxation of the cervical spine. 2. Right intraparotid mass, may represent salivary tumor or enlarged intraparotid lymph node. Recommend nonemergent ultrasound to further evaluate. 3. Multilevel cervical spondylosis. Electronically signed by: Jordan Gomez DO (05/21/2020 9:35 PM) [facility] DICTATED AND SIGNED BY: JORDAN GOMEZ DO DATE: 05/21/202134 CC: ELINA OVIEDO; FRANCISCO JOSE DO ~ IMAGING REPORT Signed PATIENT: MARISSA LO ACCOUNT: [id number] : 1930 LOCATION: ER AGE: 89 SEX: F EXAM STATUS: REG ER ORD. PHYSICIAN: FRANCISCO JOSE DO REASON: fall, OMNI 300, 75ml PROCEDURE: CT CHEST ABD PELVIS W/CONTRAST Exam: CT of chest, abdomen and pelvis with contrast. CT the thoracic and lumbar spine INDICATION: Fall TECHNIQUE: Sequential axial images through the chest, abdomen and pelvis obtained following the administration of 60 mL of Omni 300 IV contrast. Sagittal and coronal reformatted images were reconstructed from the axial data and reviewed. 3-D reformatted images were reconstructed from the axial data and reviewed. Comparisons: None FINDINGS: Heterogenous appearance of the thyroid gland. No enlarged mediastinal lymph nodes are identified. Heart size is normal. No pericardial effusion. Mild coronary artery calcifications. Thoracic aorta has a normal course and caliber. Ulnar artery is not enlarged. Airways are patent. No consolidation or pneumothorax. No suspicious lung nodules are identified. No pleural effusion or thickening. Liver, spleen, pancreas, gallbladder and adrenals are unremarkable. Kidneys demonstrate symmetric enhancement. No perinephric inflammation or hydronephrosis. No renal or ureteral calculi are identified. Bladder is partially distended and not well evaluated. Prostate is not enlarged. Few scattered diverticula are noted in the descending colon without evidence of acute diverticulitis. Remainder of the large and small bowel are unremarkable. Appendix is not identified. No free intra-abdominal air or fluid. No obstruction. Abdominal aorta has a normal course and caliber. Abdominal vasculature is patent. No enlarged intra-abdominal lymph nodes are identified. No suspicious osseous lesions or acute fractures. Thoracolumbar spine: Vertebral body heights and alignment are well-maintained. Fracture through the thoracolumbar spine is not identified. Mild degenerative disc disease greatest at L4-L5 and L5-S1. Mild bilateral facet arthropathy is also noted lower lumbar spine IMPRESSION: 1. No acute traumatic injury identified within the chest, abdomen or pelvis. 2. Negative CT thoracic and lumbar spine for acute traumatic injury. 3. Heterogenous appearance of the thyroid gland. Further evaluation with nonemergent/outpatient thyroid ultrasound is recommended. Exposure: One or more of the following in the visualized dose reduction techniques were utilized for this examination: 1. Automated exposure control 2. Adjustment of the MA and/or KV according to patient size 3. Use of iterative of reconstructive technique Electronically signed by: Deepti Clement MD (05/21/2020 9:37 PM) [id number] DICTATED AND SIGNED BY: DEEPTI CLEMENT MD DATE: 05/21/202136 CC: ELINA OVIEDO; FRANCISCO JOSE DO ~ Impressions: Concern for possible unwitnessed fall in a demented patient, history limited due this. Patient on physical exam had some mild left lower anterior rib pain. CT images were performed that showed no acute pathology. Labs are unremarkable. Urinalysis with possible mild UTI. Will treat with fosfomycin in the ED. Patient well-appearing with no signs of apparent trauma, is not any anticoagulants. Pt has a steady gait. Will DC home back to residential facility with strict ED return precautions for severe headache, nausea, vomiting or confusion. Life-threatening processes were considered, low suspicion given patient's history and physical exam. Will have patient follow-up with her primary care physician in the next week. All of patient and her daughter's questions were answered and patient was stable at time of discharge. Differential includes intracranial hemorrhage, diffuse axonal injury, spinal cord syndrome, unstable cervical fracture or SCIWORA, fractures or joint dislocations, neurovascular injuries, organ injury laceration, pneumothorax, pneumoperitoneum, pericardial tamponade, unstable pelvic fracture, compartment syndrome, flail chest or respiratory distress, burn injury or asphyxiation, abdominal aortic aneurysm, aortic dissection, acute coronary syndrome, anemia, valvular disorder, cerebrovascular accident, drug overdose or toxidrome, arrhythmia, prolonged QT syndrome, hemorrhage, heat illness, intracranial hemorrhage, infection including meningitis/encephalitis/sepsis/toxic shock/myocarditis, vertebrobasilar insufficiency, seizure, medication adverse event, illicit drug use, electrolyte disorder I spoken with the patient and her caregivers. I explained the patient's condition, diagnoses and treatment plan based on the information available to me at this time. I have answered the patient and her caregiver's questions and addressed any concerns. The patient and her caregivers have a good understanding of patient's diagnosis, condition and treatment plan as can be expected at this point. Vital signs have been stable. Patient's condition is stable and appropriate for discharge from the emergency department. Patient will pursue further outpatient evaluation with primary care physician or other designated or consulting physician as outlined in the discharge instructions. The patient and/or caregivers are agreeable to this plan of care and follow-up instructions have been explained in detail. The patient and/or caregivers have received these instructions in written form and have expressed an understanding of the discharge instructions. The patient and/or caregivers are aware that any significant change of condition or worsening of symptoms should prompt immediate return to this or the closest emergency department or call to 911. Course & Med Decision Making: Course & Med Decision Making Pertinent Labs and Imaging studies reviewed. (See chart for details) [] Dragon Disclaimer: Dragon Disclaimer: This electronic medical record was generated, in whole or in part, using a voice recognition dictation system. Departure Departure: Impression: Primary Impression: Unwitnessed fall Additional Impressions: Dementia UTI (urinary tract infection) Disposition: 01 HOME/RESIDENCE PRIOR TO ADM Condition: STABLE Referrals: ELINA OVIEDO (PCP) Patient Instructions: Fall Prevention and Home Safety, Urinary Tract Infection Justification of Admission: Justification of Admission: Justification of Admission Dx: N/A FRANCISCO JOSE DO May 21, 2020 19:51
[2020-05-21] MEDS ORDERED: IOHEXOL 300 MG/ML 75 ML VIAL. IV ONE (20:15)
[2020-05-21 20:20] LABS: BASO # 0.1 x10^3/uL (0.0-0.2); BASO % 1 % (0-3); EOS % 1 % (0-3); HEMATOCRIT 42.6 % (36.0-47.0); HEMOGLOBIN 13.9 g/dL (12.0-15.5); LYMPH # 1.8 x10^3/uL (1.0-4.8); LYMPH % 33 % (24-48); MEAN CORPUSCULAR HEMOGLOBIN 31 pg (25-35); MEAN CORPUSCULAR HGB CONC 33 g/dL (31-37); MEAN CORPUSCULAR VOLUME 95 fL (79-100); MONO # 0.9 x10^3/uL (0.0-1.1); MONO % 16 % (0-9); NEUT # 2.6 x10^3uL (1.8-7.7); NEUT % 49 % (31-73); PLATELET COUNT 144 x10^3/uL (140-400); RED CELL DISTRIBUTION WIDTH 13.5 % (11.5-14.5); WHITE BLOOD COUNT 5.4 x10^3/uL (4.0-11.0)
[2020-05-21 20:30] LABS: CALCIUM 8.1 mg/dL (8.5-10.1); CREATININE 0.9 mg/dL (0.6-1.0); GFR 59.1; POTASSIUM 3.8 mmol/L (3.5-5.1)
[2020-05-21 20:30] LABS: BILIRUBIN,URINE NEG (NEG); CLARITY,URINE HAZY; COLOR,URINE YELLOW; GLUCOSE,URINE NEG (NEG)
[2020-05-21] MEDS ORDERED: CONTRAST GIVEN. MC PRN (20:30)
[2020-05-21 20:31] LABS: BACTERIA,URINE FEW /HPF (0-FEW); NITRITE,URINE NEG (NEG); SQUAMOUS EPITHELIAL CELL,UR FEW /LPF; UROBILINOGEN,URINE 0.2 mg/dL (0.2 mg/dL)
[2020-05-21 20:35] LABS: ALBUMIN 3.1 g/dL (3.4-5.0); ALBUMIN/GLOBULIN RATIO 1.1 (1.0-1.7); TOTAL BILIRUBIN 0.4 mg/dL (0.2-1.0)
[2020-05-21 21:09] VITALS: BP 191/91
--- NOTE | 2020-05-21 21:38 | RAD ---
CT HEAD AND CERVICAL SPINE WO History: Reason: fall / Spl. Instructions: / History: . Pain. Comparison: None. Technique: Noncontrast CT imaging was performed of the head and cervical spine. Coronal and sagittal reconstructions were performed. Exposure: One or more of the following individualized dose reduction techniques were utilized for this examination: 1. Automated exposure control 2. Adjustment of the mA and/or kV according to patient size 3. Use of iterative reconstruction technique. Findings: Head CT: No intracranial hemorrhage. No mass effect. No hydrocephalus. Mild brain parenchymal volume loss. Mild foci of decreased attenuation within the hemispheric white matter, most often due to chronic microvascular ischemia. Chronic right cerebellar lacunar infarct. Right intraparotid hyperdense lesion measures 1.7 x 1.5 cm. Imaged orbits are unremarkable. Imaged paranasal sinuses and mastoid air cells are clear. No acute calvarial fracture. TMJ arthropathy. Cervical spine CT: Normal vertebral body height and alignment. No fracture. Multilevel degenerative disc changes most prominent C5-C6. Multilevel facet arthropathy most prominent left C4-C5 and C5-C6. Multilevel neuroforaminal narrowing. No high-grade canal stenosis. Impression: Head CT: 1. No acute intracranial abnormality. 2. Small chronic right cerebellar lacunar infarct. Cervical spine CT: 1. No acute fracture or subluxation of the cervical spine. 2. Right intraparotid mass, may represent salivary tumor or enlarged intraparotid lymph node. Recommend nonemergent ultrasound to further evaluate. 3. Multilevel cervical spondylosis. Electronically signed by: Jordan Gomez DO (05/21/2020 9:35 PM) [facility]
--- NOTE | 2020-05-21 21:40 | RAD ---
Exam: CT of chest, abdomen and pelvis with contrast. CT the thoracic and lumbar spine INDICATION: Fall TECHNIQUE: Sequential axial images through the chest, abdomen and pelvis obtained following the administration of 60 mL of Omni 300 IV contrast. Sagittal and coronal reformatted images were reconstructed from the axial data and reviewed. 3-D reformatted images were reconstructed from the axial data and reviewed. Comparisons: None FINDINGS: Heterogenous appearance of the thyroid gland. No enlarged mediastinal lymph nodes are identified. Heart size is normal. No pericardial effusion. Mild coronary artery calcifications. Thoracic aorta has a normal course and caliber. Ulnar artery is not enlarged. Airways are patent. No consolidation or pneumothorax. No suspicious lung nodules are identified. No pleural effusion or thickening. Liver, spleen, pancreas, gallbladder and adrenals are unremarkable. Kidneys demonstrate symmetric enhancement. No perinephric inflammation or hydronephrosis. No renal or ureteral calculi are identified. Bladder is partially distended and not well evaluated. Prostate is not enlarged. Few scattered diverticula are noted in the descending colon without evidence of acute diverticulitis. Remainder of the large and small bowel are unremarkable. Appendix is not identified. No free intra-abdominal air or fluid. No obstruction. Abdominal aorta has a normal course and caliber. Abdominal vasculature is patent. No enlarged intra-abdominal lymph nodes are identified. No suspicious osseous lesions or acute fractures. Thoracolumbar spine: Vertebral body heights and alignment are well-maintained. Fracture through the thoracolumbar spine is not identified. Mild degenerative disc disease greatest at L4-L5 and L5-S1. Mild bilateral facet arthropathy is also noted lower lumbar spine IMPRESSION: 1. No acute traumatic injury identified within the chest, abdomen or pelvis. 2. Negative CT thoracic and lumbar spine for acute traumatic injury. 3. Heterogenous appearance of the thyroid gland. Further evaluation with nonemergent/outpatient thyroid ultrasound is recommended. Exposure: One or more of the following in the visualized dose reduction techniques were utilized for this examination: 1. Automated exposure control 2. Adjustment of the MA and/or KV according to patient size 3. Use of iterative of reconstructive technique Electronically signed by: Deepti Sheriff MD (05/21/2020 9:37 PM) [id number]
[2020-05-21] MEDS ORDERED: FOSFOMYCIN TROMETHAMINE 3 GM PACKET PO ONE (22:15)
== END 2020-05-21 22:10 | disposition home or self-care (01) ==
LOC: ER 19:06
DX: F03.90 Unspecified dementia, unspecified severity, without behavioral disturbance, psychotic disturbance, mood disturbance, and anxiety (principal); N39.0 Urinary tract infection, site not specified; R51 Headache; M25.552 Pain in left hip; R07.81 Pleurodynia; K21.9 Gastro-esophageal reflux disease without esophagitis; E78.00 Pure hypercholesterolemia, unspecified; E78.5 Hyperlipidemia, unspecified; I10 Essential (primary) hypertension; Z79.82 Long term (current) use of aspirin; W18.09XA Striking against other object with subsequent fall, initial encounter; Y93.89 Activity, other specified; Y92.89 Other specified places as the place of occurrence of the external cause; Y99.8 Other external cause status
CPT/HCPCS: 36415; 70450; 71260; 72125; 72128; 72131; 74177; 80053; 81001; 84484; 85025; 85610; 85730; 87086; 99285; Q9967